=== PATIENT | female | born 1965 | race Caucasian/White ===

== ENCOUNTER → 2024-05-20 08:13 | Emergency (ER) | payer BC, SELFPAY ==
[2024-05-20 08:17] VITALS: BP 129/75
[2024-05-20 09:10] VITALS: BMI 27.9
[2024-05-20 09:32] LABS: % Basophils 0.4 % (0-2); % Eosinophils 4.1 % (0-6); % Immature Granulocytes 0.2 % (0-0.5); % Lymphocytes 23.9 % (20.5-51.1); % Monocytes 11.5 % (1.7-9.3); % Neutrophils 59.9 % (42.2-75.2); Absolute Eosinophils 0.2 10^3/uL (0-0.7); Absolute Lymphocytes 1.2 10^3/uL (1.2-3.4); Absolute Monocytes 0.6 10^3/uL (0.1-0.6); Absolute Neutrophils 2.9 10^3/uL (1.4-6.5); Hematocrit 45.4 % (37.0-47.0); Mean Corpuscular Hgb 30.1 pg (27.0-31.0); Mean Corpuscular Volume 91.2 fL (81.0-99.0); Nucleated Red Blood Cells % 0 %; Platelet Count 185 10^3/uL (130-400); Red Blood Cell Count 4.98 10^6/uL (4.20-5.40); Red Cell Dist. Width 13.4 % (11.5-14.5); White Blood Cell Count 4.9 10^3/uL (4.8-10.8)
[2024-05-20 09:52] LABS: ALT (SGPT) 44 U/L (0-35); AST (SGOT) 36 U/L (14-36); Albumin 4.4 g/dl (3.5-5.0); Alkaline Phosphatase 72 U/L (38-126); Blood Urea Nitrogen 14 mg/dl (7-17); Calcium 9.9 mg/dl (8.4-10.2); Carbon Dioxide 28 mmol/L (22-30); Chloride 103 mmol/L (98-107); Estimated Creatinine Clearance 86 ml/min; Glucose 111 mg/dl (70-99); Potassium 4.3 mmol/L (3.5-5.1); Sodium 137 mmol/L (135-145); Total Bilirubin 0.6 mg/dl (0.2-1.3); Total Protein 7.2 g/dl (6.3-8.2); eGFR > 60.00
[2024-05-20 09:54] LABS: Troponin I < 0.012 ng/ml
[2024-05-20 10:02] VITALS: BP 96/75
[2024-05-20] MEDS: TORADOL 15 MG IV (10:42)
[2024-05-20 11:33] VITALS: BP 110/70
[2024-05-20 11:56] LABS: Troponin I < 0.012 ng/ml
[2024-05-20 12:00] VITALS: BP 111/71
--- NOTE | 2024-05-20 12:36 | ED.GENMED ---
History of Present Illness
General
Chief Complaint: Chest Pain
Source: patient
Exam Limitations: none
Time Seen by Provider: 05/20/24 09:19
Nursing documentation reviewed up to this point in time: agreed with
History of Present Illness
History of Present Illness:
Patient presents to ED after waking up this morning with chest pain. Chest pain described as sharp, nonradiating, without any alleviating or exacerbating factors. Denies direct trauma. Denies fever or chills. Of note, patient has had
nonproductive cough over the past 2 days, worsening over the past 24 hours. Denies back pain. Denies leg pain or swelling. Unfortunately, patient does report having had pulmonary embolism 12 years ago, which she experienced similar symptoms.
Patient currently does not take any blood thinning medications. Denies family history of heart disease. Denies smoking. Patient does report drinking alcohol socially.
Review of Systems
Review of Systems
Allergies reviewed?: Yes
All Other Systems: ROS reviewed and negative except as documented in HPI and ROS
Constitutional: Reports no symptoms; Denies fever
EENT: Reports no symptoms
Respiratory: Reports cough
Cardiac: Reports chest pain
ABD/GI: Reports no symptoms
Musculoskeletal: Reports no symptoms
Skin: Reports no symptoms
Neurological: Reports no symptoms
Phy Exam
Physical Exam
Physical Exam:
Physical Exam
General: no apparent distress, not acutely ill. afebrile.
Head: nc/at. eomi
Neck: supple. normal range of motion.
Heart: s1/s2 regular rate and rhythm, no murmur.
Lungs: no acute respiratory distress. clear bilaterally. chest wall nontender to palpation
Abdomen: normal bowel sounds. not tender.
Neuro: alert and oriented. no focal neurological deficits
Skin: no rash
Psychiatric: well kept. interactive and cooperative
Extremities: no edema. no calf tenderness.
Scores
Heart Score for Chest Pain Patients
STEMI patient?: Not applicable
Course
Orders/Labs/Results
Orders:
Orders
05/20/24 08:17
ECG [Electrocardiogram (*1)] Urgent
Reason for Study: Chest Pain
EKG- Treatment ONCE
05/20/24 09:07
CR Chest - 2 Views Urgent
Comment:
Reason For Exam: chest pain, cough
05/20/24 09:22
Complete Blood Count/With Diff Urgent
Comprehensive Metabolic Panel Urgent
Troponin I Urgent
05/20/24 10:26
EKG- Treatment ONCE
Ketorolac [Toradol] 15 mg IV NOW STA
05/20/24 10:28
CT Chest PE Study Urgent
Comment:
Reason For Exam: chest pain w hx PE
05/20/24 11:25
Troponin I Urgent
05/20/24 11:30
Electrocardiogram (*1) Urgent
Reason for Study: Chest Pain
Abnormal Lab Results
05/20/24
09:22
Monocytes % 11.5 H %
(1.7-9.3)
Glucose 111 H mg/dl
(70-99)
ALT 44 H U/L
(0-35)
05/20/24 09:22
05/20/24 09:22
Vital Signs
Initial and Last Documented VS:
Initial Vital Signs
Temp Pulse Resp BP Pulse Ox
98.2 F 76 18 129/75 100
05/20/24 08:17 05/20/24 08:17 05/20/24 08:17 05/20/24 08:17 05/20/24 08:17
Last Documented Vital Signs
Temp Pulse Resp BP Pulse Ox
98.2 F 69 21 111/71 99
05/20/24 08:17 05/20/24 12:00 05/20/24 12:00 05/20/24 12:00 05/20/24 12:00
MDM/Problems Addressed
MDM/Problems Addressed:
Patient with an unremarkable, ED, including repeat blood work and CTA PE study. History and exam consistent with likely symptoms secondary to nonspecific viral illness. Otherwise, patient is afebrile, hemodynamically stable, and without any acute
distress. Patient will be advised to continue to take NSAIDs for symptomatic treatment, along with PCP follow-up as an outpatient.
*Critical Care Note
Total Time (30-74mins, 75-104mins- exclusive of procedures): Not Applicable
ED Attending Note
-
Portions of this chart may have been created with voice recognition software.� Occasional wrong word or��sound alike� substitutions may have occurred due to the inherent limitations of voice recognition software.
Discharge Plan
Departure
Patient Disposition: Home (Routine Discharge)
Date of Disposition: 05/20/24
Time of Disposition: 12:41
Patient with high blood pressure during this ER visit?: Yes
Condition: Good
Discharge Problem:
URI (upper respiratory infection)
Instructions: Upper respiratory infection in adults - Discharge instructions
Referrals:
Jess Ledbetter MD [Family Provider] -
Activity Restrictions/Additional Instructions:
As discussed, please follow-up with your primary care physician with any further concerns. In the meantime, recommend taking Tylenol/Motrin for symptomatic treatment.
Interventions
Interventions:
*Risk Screen - Suicide Last Done: 05/20/24 08:17
*General Assessment Last Done: 05/20/24 08:17
*Neglect/Abuse Screening Last Done: 05/20/24 08:17
ED- Cardiac Assessment Last Done: 05/20/24 09:18
Discharge Date and Time
Print Language: [id number]
== END | disposition home or self-care (01) ==
LOC: EMR 08:13
PROVIDERS: Emergency Medicine; EMERGENCY PHYSICIAN Emergency Medicine; FAMILY PHYSICIAN Family Medicine
DX: J06.9 Acute upper respiratory infection, unspecified (principal); R07.89 Other chest pain; R20.2 Paresthesia of skin; R03.0 Elevated blood-pressure reading, without diagnosis of hypertension; E78.5 Hyperlipidemia, unspecified; Z86.711 Personal history of pulmonary embolism; Z87.891 Personal history of nicotine dependence
CPT/HCPCS: 99285; 96374; 71046; 71275; 80053; 84484; 85025; 93005; Q9967